=== PATIENT | female | born 1980 | race Two or more races ===

== ENCOUNTER 2019-06-21 16:34 | Emergency (ER) | payer BC, OTHER ==
[~2019-06-21] VITALS: Ht 160 cm; Wt 90.0 kg
[2019-06-21] MEDS ORDERED: IBUPROFEN 600MG TABLET PO ONE (17:45)
[2019-06-21] MEDS ORDERED: ONDANSETRON 4MG ODT PO ONE (17:45)
[2019-06-21] MEDS ORDERED: SODIUM CHLORIDE 0.9% 1,000 ML IV ONE (18:14)
[2019-06-21 18:59] LABS: CHLORIDE 109 mEq/L (98-107)
[2019-06-21 19:01] LABS: BASOPHILS % 0.1 % (0.0-2.0); EOSINOPHILS % 0.8 % (0.0-5.0); HEMATOCRIT. 35.4 % (36.0-48.0); HEMOGLOBIN. 12.6 g/dL (12.0-16.0); LYMPHOCYTES % 12.3 % (20.0-50.0); MEAN CORPUSCULAR HEMOGLOBIN 31.9 pg (28.0-32.0); MEAN CORPUSCULAR VOLUME 89.8 fL (81.0-99.0); MEAN PLATELET VOLUME 9.2 fl (7.4-10.4); NEUTROPHILS % 79.8 % (40.0-76.0); PLATELET 142 x1000/uL (130-400); RED BLOOD CELL COUNT 3.94 mill/uL (4.2-5.4); RED CELL DISTRIBUTION WIDTH 13.4 % (11.6-14.6)
[2019-06-21 19:07] LABS: CLARITY URINE CLEAR (CLEAR); COLOR URINE YELLOW (YELLOW); KETONES URINE TRACE (NEGATIVE); LEUKOCYTE ESTERASE URINE NEGATIVE (NEGATIVE); NITRITE URINE NEGATIVE (NEGATIVE); OCCULT BLOOD URINE NEGATIVE (NEGATIVE); PH URINE 6.5 (4.5-8.0); PROTEIN URINE TRACE (NEGATIVE); SPECIFIC GRAVITY URINE 1.027 (1.005-1.030); UROBILINOGEN URINE 0.2 E.U./dL (0.2-1.0)
[2019-06-21 19:11] LABS: D-DIMER 0.93 mg/L FEU (<0.50); INR 0.9
[2019-06-21 20:58] VITALS: BP 126/71
== END 2019-06-21 21:05 | disposition left against medical advice (07) ==
LOC: ER 16:34
DX: R00.2 Palpitations (principal); R51 Headache; F41.9 Anxiety disorder, unspecified
CPT/HCPCS: 36415; 80053; 81003; 83690; 83880; 85025; 85379; 85610; 93005; 96360; 99284; J7030